=== PATIENT | female | born 1990 | race Caucasian/White ===

== ENCOUNTER 2017-03-23 09:29 | Inpatient (IN) | payer MEDICAID ==
[2017-03-31] MEDS ORDERED: RINGERS SOLUTION,LACTATED 1,000 ML IV PRN (19:48)
[2017-03-31] MEDS ORDERED: DINOPROSTONE 10 MG VAGINAL INSERT.SR PV PRN (19:48)
[2017-03-31] MEDS ORDERED: OXYTOCIN/NORMAL SALINE 20 UNIT/1,000 ML RTUINJ IV PRN (19:48)
[2017-03-31] MEDS ORDERED: RINGERS SOLUTION,LACTATED 300 ML IV ONE (19:48)
[2017-03-31] MEDS ORDERED: DINOPROSTONE 10 MG VAGINAL INSERT.SR ONE (20:16)
[2017-03-31 20:38] LABS: ABSOLUTE EOSINOPHILS # (AUTO) 0.1 10^3/uL (0.0-0.6); ABSOLUTE LYMPHOCYTES (AUTO) 1.5 10^3/uL (0.5-4.7); ABSOLUTE MONOCYTES (AUTO) 0.4 10^3/uL (0.1-1.4); ABSOLUTE NEUT (AUTO) 4.4 10^3/uL (1.7-8.2); BASOPHILS % (AUTO) 0.3 % (0-2); EOSINOPHILS % (AUTO) 0.8 % (0-6); HEMATOCRIT 33.4 % (36.0-47.0); HEMOGLOBIN 11.6 g/dL (12.0-15.5); HGB HCT DIFFERENCE 1.4; LYMPHOCYTES % (AUTO) 23.4 % (13-45); MEAN CORPUSCULAR HEMOGLOBIN 30.8 pg (27.0-33.4); MEAN CORPUSCULAR HGB CONC 34.8 g/dL (32.0-36.0); MEAN CORPUSCULAR VOLUME 89 fl (80-97); MONOCYTES % (AUTO) 6.5 % (3-13); RED BLOOD COUNT 3.77 10^6/uL (3.72-5.28); RED CELL DISTRIBUTION WIDTH 14.8 % (11.5-14.0); WHITE BLOOD COUNT 6.3 10^3/uL (4.0-10.5)
[2017-03-31 21:03] LABS: APPEARANCE,URINE SLIGHTLY-CLOUDY; BILIRUBIN,URINE NEGATIVE (NEGATIVE); GLUCOSE, URINE NEGATIVE (NEGATIVE); KETONES,URINE NEGATIVE (NEGATIVE); LEUKOCYTE ESTERASE,URINE NEGATIVE (NEGATIVE); NITRITE,URINE NEGATIVE (NEGATIVE); PROTEIN,URINE NEGATIVE (NEGATIVE); URINE SPECIFIC GRAVITY 1.003; UROBILINOGEN,URINE NEGATIVE mg/dL (<2.0)
[2017-03-31 21:18] LABS: URINE BARBITURATES SCREEN NEGATIVE; URINE METHADONE SCREEN NEGATIVE; URINE OPIATES LOW NEGATIVE; URINE PHENCYCLIDINE SCREEN NEGATIVE
[2017-04-01] MEDS ORDERED: PENICILLIN G POTASSIUM 5,000,000 UNIT in DEXTROSE 5%-WATER 100 ML IV ONE (08:00)
--- NOTE | 2017-04-01 09:51 | L&D Progress Notes ---
PROGRESS NOTES Datetime Report Generated by CPN: 04/01/2017 09:51 PROGRESS NOTE Impression: Reassuring Heart Rate Plan: Continue Present Management; Induction; Cervical Ripening Informed Consent Obtained: Vaginal Delivery Vital Signs : Reviewed; Within Normal Limits Comment: Cat 1 strip, no c/o irreg uc's, cervidil out, + change VAGINAL EXAM Dilatation: 1 Effacement: 0 Station: -3 MEMBRANES Membranes: Intact FETUS A FHR - Baseline: 125 Decelerations: None : 41.0 Presentation: Vertex SIGNATURE SIGNATURE: [id number] Assignment: Shena Altamirano MD Signature: with User ID: [email or web address] : with User ID: [email or web address]
[2017-04-01] MEDS ORDERED: PENICILLIN G-K 5 MILLION UNIT VIAL ONE (09:59)
[2017-04-01] MEDS ORDERED: PENICILLIN G POTASSIUM 2,500,000 UNIT in DEXTROSE 5%-WATER 100 ML IV SCH (10:00)
--- NOTE | 2017-04-01 11:17 | L&D Progress Notes ---
PROGRESS NOTES Datetime Report Generated by CPN: 04/01/2017 11:16 PROGRESS NOTE Procedures: Sterile Vag Exam Plan: Continue Present Management Vital Signs : Reviewed; Within Normal Limits Comment: asking for epidural, irreg uc's, no Pitocin, VE /vtx/0 FETUS C SIGNATURE: [id number] Assignment: Shena Altamirano MD Signature: with User ID: [email or web address] : with User ID: [email or web address]
[2017-04-01] MEDS ORDERED: FENTANYL/BUPIVACAINE/NS/PF 200 MCG/100 ML RTUINJ EPI ONE (11:26)
[2017-04-01] MEDS ORDERED: MISOPROSTOL 0.2 MG TABLET ONE (11:26)
[2017-04-01] MEDS ORDERED: LIDOCAINE 1% INJ-PF (10 MG/ML) 30 ML SDV ONE (11:26)
[2017-04-01] MEDS ORDERED: EPHEDRINE SULFATE INJ 50 MG/1 ML AMPULE ONE (11:26)
[2017-04-01] MEDS ORDERED: OXYTOCIN/NORMAL SALINE 20 UNIT/1,000 ML RTUINJ ONE (11:26)
[2017-04-01] MEDS ORDERED: BUPIVACAINE HCL 0.25 % INJ/PF (2.5 MG/1 ML) 30 ML VIAL ONE (11:27)
[2017-04-01] MEDS ORDERED: PENICILLIN G POTASSIUM 2,500,000 UNIT in DEXTROSE 5%-WATER 50 ML IV SCH (12:00)
[2017-04-01] MEDS ORDERED: OXYTOCIN/NORMAL SALINE 20 UNIT/1,000 ML RTUINJ IV PRN (13:22)
[2017-04-01] MEDS ORDERED: DIBUCAINE 1% OINTMENT 28 GM TP PRN (13:22)
[2017-04-01] MEDS ORDERED: ACETAMINOPHEN 650 MG SUPP.RECT PR PRN (13:22)
[2017-04-01] MEDS ORDERED: PSEUDOEPHEDRINE HCL 30 MG TABLET PO PRN (13:22)
[2017-04-01] MEDS ORDERED: MISOPROSTOL 0.2 MG TABLET PR PRN (13:22)
[2017-04-01] MEDS ORDERED: PROMETHAZINE HCL INJ 25 MG/1 ML VIAL IV PRN (13:22)
[2017-04-01] MEDS ORDERED: NA PHOS,M-B/NA PHOS,DI-BA (ADULT) 133 ML ENEMA PR PRN (13:22)
[2017-04-01] MEDS ORDERED: GLYCERIN/WITCH HAZEL LEAF 1 EACH MED..PAD TP PRN (13:22)
[2017-04-01] MEDS ORDERED: BENZOCAINE/MENTHOL AEROSOL SPRAY 56 ML TOP PRN (13:22)
[2017-04-01] MEDS ORDERED: DIPHENHYDRAMINE HCL 25 MG CAPSULE PO PRN (13:22)
[2017-04-01] MEDS ORDERED: ACETAMINOPHEN WITH CODEINE #3 TABLET PO PRN ×2 (13:22)
[2017-04-01] MEDS ORDERED: MEASLES,MUMPS&RUBELLA VACC/PF 0.5 ML VIAL SUBCUT PRN (13:22)
[2017-04-01] MEDS ORDERED: PROMETHAZINE HCL 25 MG TABLET PO PRN (13:22)
[2017-04-01] MEDS ORDERED: PROMETHAZINE HCL 25 MG SUPP.RECT PR PRN (13:22)
[2017-04-01] MEDS ORDERED: MAGNESIUM HYDROXIDE SUSP 30 ML UDCUP PO PRN (13:22)
[2017-04-01] MEDS ORDERED: DIPH/PERTUSS(ACELL)/TETANUS VAC/PF 0.5 ML SYR (>=10YO) IM PRN (13:22)
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
--- NOTE | 2017-04-01 16:13 | Delivery Summary ---
Del Sum A-C Datetime Report Generated by CPN: 04/01/2017 16:12 DELIVERY PERSONNEL DELIVERY PERSONNEL: [id number] Nurse [id number] Tank Driver Certified:: Gayle Brumfield CNM Labor and Delivery Nurse:: Essie Carreon RN Nursery Nurse:: Crystal Lambert RN Higher Education Administrator/VENEER DEPARTMENT MANAGER: Natali Waters, ST Higher Education Administrator/VENEER DEPARTMENT MANAGER: Marylin Al CNA II MATERNAL INFORMATION Delivery Anesthesia: Epidural Medications After Delivery: Pitocin Drip 20 Units/1000ml NSS; Other-Please Comment Meds After Delivery Comment: 1000 mcg cytotec OR Estimated Blood Loss (ml): 400 Maternal Complications: None Provider Comments: AROM thick meconium, baby made rapid descent, viable male from OA to STAR over intact perineum, thick meconium. placed on mothers abd, no dystocia. Spont delivery of gross large placenta, 3 VC, EBL = 400cc, cord clamped and cut after 2 minutes Cytotec 1000mcg in rectum. FFFM, mom and baby remain in recovery in stable condition LABOR SUMMARY EDC: 03/22/2017 00:00 No. Babies in Womb: 1 Attempted: No Labor Anesthesia: Epidural LABOR INFORMATION Reason for Induction: Post Dates Onset of Labor: 04/01/2017 09:16 Complete Dilatation: 04/01/2017 12:48 Cervical Ripening Agents: Cervidil Oxytocin: N/A Group B Beta Strep: positive Antibiotics # of Doses: 1 Antibiotics Time of Last Dose: 1010 Name of Antibiotic Given: Penicillin Steroids Given: None Reason Steroids Not Administered: Not Applicable MEMBRANES Membranes Rupture Method: Artificial Rupture of Membranes: 04/01/2017 12:48 Length of Rupture (hr): 0.20 Amniotic Fluid Color: Light Meconium Amniotic Fluid Amount: Scant Amniotic Fluid Odor: Normal STAGES OF LABOR Stage 1 hr: 3 Stage 1 min: 32 Stage 2 hr: 0 Stage 2 min: 12 Stage 3 hr: 0 Stage 3 min: 7 Total Time in Labor hr: 3 Total Time in Labor min: 51 VAGINAL DELIVERY Episiotomy: None Laceration #1: None Laceration Extension #1: N/A Laceration #2: None Laceration #3: None Laceration Repair: Not Applicable Sponge Count Correct: N/A Sharps Count Correct: N/A CSECTION DELIVERY Primary Indication: N/A BABY A INFORMATION Delivery Date/Time: 04/01/2017 13:00 Method of Delivery: Vaginal Born in Route : No : N/A Forceps: N/A Vacuum Extraction: N/A Shoulder Dystocia : No PRESENTATION/POSITION BABY A Presentation: Cephalic Cephalic Presentation: Vertex Vertex Position: Left Occipital Anterior Breech Presentation: N/A PLACENTA INFORMATION BABY A Placenta Delivery Time : 04/01/2017 13:07 Placenta Method of Delivery: Spontaneous Placenta Status: Delivered SCORES BABY A Heart Rate 1 min: >100 bpm Resp Effort 1 min: Good Cry Reflex Irritability 1 min: Cough or Sneeze or Pulls Away Muscle Tone 1 min: Active Motion Color 1 min: Body [place], Extremities Blue Resuscitation Effort 1 min: Tactile Stimulation SCORE 1 MIN: 9 Heart Rate 5 min: >100 bpm Resp Effort 5 min: Good Cry Reflex Irritability 5 min: Cough or Sneeze or Pulls Away Muscle Tone 5 min: Active Motion Color 5 min: Body [place], Extremities Blue Resuscitation Effort 5 min: N/A SCORE 5 MIN: 9 INFANT INFORMATION BABY A Gestational Age at Delivery: 41.3 Gestational Status: Late Term- 41- 41.6 Weeks Infant Outcome : Liveborn Infant Condition : Stable Infant Sex: Male IDENTIFICATION BABY A Infant Verification Date/Time: 04/01/2017 13:27 ID Band Number: [id number] Mother's Name Verified: Yes RN Verifying : C. leonardo, RN/M. Emerald, RN WEIGHT/LENGTH BABY A Infant Birthweight (gm): 4073 Infant Weight (lb): 9 Infant Weight (oz): 0 Infant Length (in): 22.00 Infant Length (cm): 55.88 CORD INFORMATION BABY A No. Cord Vessels: 3 Nuchal Cord : N/A Cord Blood Taken: Yes-For Storage (Mom's Blood type +) Infant Suction: None ASSESSMENT BABY A Infant Complications: None Physical Findings at Delivery: Within Normal Limits Infant Respirations: Appears Normal Skin to Skin: Yes Skin to Skin Time (min): 60 Proposal Manager/ALS Called : No Care By: Luis Lambert CNM Transferred To: Remains with Mother
[2017-04-01] MEDS: FERROUS SULFATE 325 MG TABLET PO SCH (18:16)
[2017-04-01] MEDS: DOCUSATE SODIUM 100 MG CAPSULE PO SCH (18:16)
[2017-04-01] MEDS: IBUPROFEN 800 MG TABLET PO SCH ×2 (18:20→21:49)
[2017-04-01] MEDS: FAMOTIDINE 20 MG TABLET PO SCH (22:07)
[2017-04-02] MEDS: IBUPROFEN 800 MG TABLET PO SCH ×3 (05:25→21:12)
--- NOTE | 2017-04-02 08:50 | PDOC PROGRESS REPORT ---
Subjective-OB Subjective: Post Delivery Day: 1 26 year old. Denies any needs at this time, states pain well controlled, lochia is stable, voiding without difficulty. Physical Exam (OB) Vital Signs: Temp Pulse Resp BP Pulse Ox 98.6 F 74 16 117/68 99 04/01/17 19:48 04/01/17 19:48 04/01/17 19:48 04/01/17 19:48 04/01/17 19:48 Intake & Output 04/01/17 04/02/17 04/03/17 06:59 06:59 06:59 Weight 88.5 kg - Lochia Lochia Amount: Small 10-25 ml Lochia Color: Rubra/Red - Abdomen Description: Soft, Round Fundal Description: Firm Fundal Height: u/u - u/2 Objective-Diagnostic Laboratory: 04/02/17 07:16 04/02/17 07:16 WBC Cancelled RBC Cancelled Hgb Cancelled Hct Cancelled MCV Cancelled MCH Cancelled MCHC Cancelled RDW Cancelled Plt Count Cancelled Assessment and Plan(PN) - Assessment and Plan (1) Delivery normal Is this a current diagnosis for this admission?: Yes Plan: routine care. - Time Spent with Patient Time with patient: Less than 15 minutes Critical Time spent with patient: Less than 15 minutes Medications reviewed and adjusted accordingly: Yes - Disposition Anticipated Discharge: Home Within: within 24 hours
[2017-04-02 09:29] LABS: HEMATOCRIT 31.7 % (36.0-47.0); HGB HCT DIFFERENCE 1.3; MEAN CORPUSCULAR HGB CONC 34.8 g/dL (32.0-36.0); MEAN CORPUSCULAR VOLUME 89 fl (80-97); RED BLOOD COUNT 3.55 10^6/uL (3.72-5.28); RED CELL DISTRIBUTION WIDTH 14.8 % (11.5-14.0); WHITE BLOOD COUNT 8.8 10^3/uL (4.0-10.5)
[2017-04-02] MEDS: FAMOTIDINE 20 MG TABLET PO SCH ×2 (09:32→22:41)
[2017-04-02] MEDS: FERROUS SULFATE 325 MG TABLET PO SCH ×2 (09:33→18:17)
[2017-04-02] MEDS: SENNOSIDES/DOCUSATE 8.6-50 MG 1 EACH TABLET PO SCH (09:33)
[2017-04-02] MEDS: PRENATAL VITAMIN W-O CA NO5/FE FUMARATE/FA CAPSULE PO SCH (09:35)
[2017-04-02] MEDS: DOCUSATE SODIUM 100 MG CAPSULE PO SCH ×2 (11:42→18:17)
[2017-04-03] MEDS: IBUPROFEN 800 MG TABLET PO SCH (06:44)
[2017-04-03 08:57] VITALS: BP 102/56
[2017-04-03] MEDS: SENNOSIDES/DOCUSATE 8.6-50 MG 1 EACH TABLET PO SCH (09:36)
[2017-04-03] MEDS: PRENATAL VITAMIN W-O CA NO5/FE FUMARATE/FA CAPSULE PO SCH (09:36)
[2017-04-03] MEDS: FERROUS SULFATE 325 MG TABLET PO SCH (09:36)
[2017-04-03] MEDS: FAMOTIDINE 20 MG TABLET PO SCH (09:36)
[2017-04-03] MEDS: DOCUSATE SODIUM 100 MG CAPSULE PO SCH (09:37)
--- NOTE | 2017-04-03 09:45 | PDOC PROGRESS REPORT ---
Subjective-OB Subjective: Post Delivery Day: 26 year old. Denies any needs at this time Doing well, no c/o, ready to go home, , voiding, ambulating Physical Exam (OB) Vital Signs: Temp Pulse Resp BP Pulse Ox 98.3 F 53 L 16 102/56 L 97 04/03/17 07:07 04/03/17 07:07 04/03/17 07:07 04/03/17 07:07 04/03/17 07:07 - PIH/Pre-Eclampsia Clonus: Negative Headache: Absent Epigastric Pain: No Visual Changes: No - Lochia Lochia Amount: Scant < 10 ml Lochia Color: Rubra/Red - Abdomen Description: Soft, Round Hernia Present: No Fundal Description: Firm Fundal Height: u/u - u/2 Objective-Diagnostic Laboratory: 04/02/17 09:15 Assessment and Plan(PN) - Assessment and Plan (1) Genital HSV Qualifiers: Herpes simplex infection site: unspecified Qualified Code(s): A60.00 - Herpesviral infection of urogenital system, unspecified Is this a current diagnosis for this admission?: No (2) Hypothyroid Qualifiers: Hypothyroidism type: unspecified Qualified Code(s): E03.9 - Hypothyroidism , unspecified Is this a current diagnosis for this admission?: Yes (3) Depression Qualifiers: Depression Type: unspecified Qualified Code(s): F32.9 - Major depressive disorder, single episode, unspecified Is this a current diagnosis for this admission?: Yes (4) Asthma Qualifiers: Asthma severity: mild Asthma complication type: uncomplicated Is this a current diagnosis for this admission?: Yes (5) Delivery normal Is this a current diagnosis for this admission?: Yes - Time Spent with Patient Time with patient: Less than 15 minutes Medications reviewed and adjusted accordingly: Yes - Disposition Anticipated Discharge: Home Within: Other - home today, RTC 4 weeks
--- NOTE | 2017-04-03 09:49 | PDOC DISCHARGE SUMMARY ---
Final Diagnosis Discharge Date: 04/03/17 - Final Diagnosis (1) Genital HSV Is this a current diagnosis for this admission?: Yes (2) Hypothyroid Is this a current diagnosis for this admission?: Yes (3) Depression Is this a current diagnosis for this admission?: Yes (4) Asthma Is this a current diagnosis for this admission?: Yes (5) Delivery normal Is this a current diagnosis for this admission?: Yes Discharge Data - Discharge Medication Home Medications: Levothyroxine Sodium 1 tab PO DAILY 08/09/15 Prenat 115/Iron Fum/Folic/Dss [ 19 Tablet] 1 tab PO DAILY 08/09/15 Gestational Age: 41.3 Reason(s) for Admission: Induction of Labor, Group B Strep Positive Procedures: NST, Ultrasound Intrapartum Procedure(s): Spontaneous Vaginal Delivery - Data Baby 1 Male at 1 minute: 9 at 5 minutes: 9 Weight: 4.082 kg Home with Mother: Yes Complications: No - Diagnosis Test Laboratory: Temp Pulse Resp BP Pulse Ox 98.3 F 53 L 16 102/56 L 97 04/03/17 07:07 04/03/17 07:07 04/03/17 07:07 04/03/17 07:07 04/03/17 07:07 03/31/17 03/31/17 04/02/17 19:50 20:18 07:16 RBC 3.77 Cancelled Hgb 11.6 L Cancelled Hct 33.4 L Cancelled Urine Opiates Screen NEGATIVE 04/02/17 09:15 RBC 3.55 L Hgb 11.0 L Hct 31.7 L Urine Opiates Screen - Discharge information/Instructions Discharge Activity: Activity As Tolerated, No Lifting Over 10 Pounds, Pelvic Rest Discharge Diet: As Tolerated, Regular Disposition: HOME, SELF-CARE Follow up with: [facility] in: 4, Weeks
== END 2017-04-03 11:40 | disposition home or self-care (01) | DRG 775 ==
LOC: LR 03-31 19:37 → 2N 04-01 15:57
PROVIDERS: ADMIT Obstetrics & Gynecology; ATTEND Obstetrics & Gynecology
PROC: 10E0XZZ Delivery of Products of Conception, External Approach (ICD-10-PCS; principal; 2017-04-01)
DX: O48.0 Post-term pregnancy (principal); O99.284 Endocrine, nutritional and metabolic diseases complicating childbirth; E03.9 Hypothyroidism, unspecified; O77.0 Labor and delivery complicated by meconium in amniotic fluid; O99.824 Streptococcus B carrier state complicating childbirth; Z3A.41 41 weeks gestation of pregnancy; Z37.0 Single live birth; O99.344 Other mental disorders complicating childbirth; F32.9 Major depressive disorder, single episode, unspecified; O75.89 Other specified complications of labor and delivery; J45.909 Unspecified asthma, uncomplicated; Z87.891 Personal history of nicotine dependence; Z87.42 Personal history of other diseases of the female genital tract
CPT/HCPCS: 36415; 80307; 81005; 85025; 85027; 86592; 86850; 86900; 86901; J2540; J2590; J3490

== ENCOUNTER 2019-11-04 13:02 | Outpatient (CLI) | payer MEDICAID | END 2019-11-04 13:46 | disposition home or self-care (01) | LOC: LC 13:02 | PROVIDERS: ATTEND Obstetrics & Gynecology | DX: O36.8130 Decreased fetal movements, third trimester, not applicable or unspecified (principal); Z3A.38 38 weeks gestation of pregnancy | CPT/HCPCS: 59025 ==

== ENCOUNTER 2019-11-11 18:10 | Inpatient (IN) | payer MEDICAID ==
[2019-11-11] MEDS ORDERED: RINGERS SOLUTION,LACTATED 1,000 ML IV PRN (18:28)
[2019-11-11] MEDS ORDERED: RINGERS SOLUTION,LACTATED 1,000 ML IV ONE (18:28)
[2019-11-11] MEDS ORDERED: OXYTOCIN 10 UNIT/ML VIAL ONE (18:31)
[2019-11-11] MEDS ORDERED: MISOPROSTOL 0.2 MG TABLET ONE (18:31)
[2019-11-11] MEDS ORDERED: LIDOCAINE 1% INJ-PF (10 MG/ML) 30 ML SDV ONE (18:31)
[2019-11-11] MEDS ORDERED: OXYTOCIN/0.9 % SODIUM CHLORIDE 30 UNIT/500 ML RTUINJ ONE (18:31)
[2019-11-11 18:55] LABS: APPEARANCE,URINE CLEAR; BILIRUBIN,URINE NEGATIVE (NEGATIVE); COLOR,URINE STRAW; GLUCOSE, URINE NEGATIVE (NEGATIVE); KETONES,URINE TRACE mg/dL (NEGATIVE); LEUKOCYTE ESTERASE,URINE NEGATIVE (NEGATIVE); NITRITE,URINE NEGATIVE (NEGATIVE); PROTEIN,URINE NEGATIVE (NEGATIVE); URINE SPECIFIC GRAVITY 1.003; UROBILINOGEN,URINE NEGATIVE mg/dL (<2.0)
[2019-11-11 19:07] LABS: ABSOLUTE BASOPHILS # (AUTO) 0.1 10^3/uL (0.0-0.2); ABSOLUTE EOSINOPHILS # (AUTO) 0.1 10^3/uL (0.0-0.6); ABSOLUTE LYMPHOCYTES (AUTO) 1.3 10^3/uL (0.5-4.7); ABSOLUTE MONOCYTES (AUTO) 0.5 10^3/uL (0.1-1.4); BASOPHILS % (AUTO) 0.9 % (0-2); EOSINOPHILS % (AUTO) 0.7 % (0-6); HEMATOCRIT 35.8 % (36.0-47.0); HEMOGLOBIN 12.9 g/dL (12.0-15.5); MEAN CORPUSCULAR HEMOGLOBIN 33.1 pg (27.0-33.4); MEAN CORPUSCULAR VOLUME 92 fl (80-97); MONOCYTES % (AUTO) 5.8 % (3-13); PLATELET COUNT 148 10^3/uL (150-450); RED BLOOD COUNT 3.89 10^6/uL (3.72-5.28); RED CELL DISTRIBUTION WIDTH 14.9 % (11.5-14.0); SEGMENTED NEUTROPHILS % (AUTO) 75.6 % (42-78); TOTAL CELLS COUNTED % (AUTO) 100 %; WHITE BLOOD COUNT 7.9 10^3/uL (4.0-10.5)
--- NOTE | 2019-11-11 19:20 | Admission Physical ---
Datetime Report Generated by CPN: 11/11/2019 19:20 CURRENT ADMISSION Chief Complaint: Uterine Contractions Indication for Induction: Not Applicable Admit Impression : Term, Intrauterine ; Active Labor; Intact Membranes Admit Plan: Admit to Unit; Initiate Labor Protocol ALLERGIES Medication Allergies: No Medication Allergies: No Known Allergies (11/04/2019) Latex: No Latex Allergies Food Allergies: none Environmental Allergies: none OBSTETRICAL HISTORY EDC: 11/12/2019 00:00 : 3 Para: 2 Cesareans: o Gestational Diabetes: No Rh Sensitization: No Incompetent Cervix: No LITTLE: No Infertility: No ART Treatment: No Uterine Anomaly: No IUGR: No Hx Previous C/S: No Macrosomia: No Hx Loss/Stillborn: No PIH: No Hx : No Placenta Previa/Abruption: No Depression/PP Depression: No PTL/PROM: No Post Hemorrhage: No Current Procedures: Ultrasound; NST Obstetrical History Comments: G1-08/10/2015, 41 weeks, vaginal, shoulder dystocia G2-04/01/2017, 41 weeks, vaginal G3- Current SEE RECORDS Alcohol: No Marijuana : No Cocaine: No Other Illicit Drugs: No Cigarettes: Never Smoker. [id number] MEDICAL HISTORY Diabetes: No Blood Transfusion: No Pulmonary Disease (Asthma, TB): Yes Breast Disease: No Hypertension: No Sisal Picker Surgery: No Heart Disease: No Hosp/Surgery: Yes Autoimmune Disorder: No Anesthetic Complications: No Kidney Disease: No Abnormal Pap Smear: No Neuro/Epilepsy: No Psychiatric Disorders: No Other Medical Diseases: No Hepatitis/Liver Disease: No Significant Family History: No Varicosities/Phlebitis: No Trauma/Violence : No Thyroid Dysfunction: Yes Medical History Comments: Hypothyroid, asthma, hospitalized with childbirth INFECTIOUS HISTORY Gonorrhea: No Genital Herpes: No Chlamydia: No Tuberculosis: No Syphilis: No Hepatitis: No HIV/AIDS Exposure: No Rash or Viral Illness: No HPV: No Infectious History Comments: Hx of cold sores, never a genital outbreak, been taking valtrex as a preventative PHYSICAL EXAM General: Normal HEENT: Normal Neurologic: Normal Thyroid: Deferred Heart: Normal Lungs: Normal Breast: Deferred Back: Normal Abdomen: Normal Genitourinary Exam: Normal Extremities: Normal DTRs: Normal Pelvic Type: Adequate Physical Exam Comments: no e/o lesions on exam. NO prodrome Vital Signs: Reviewed VAGINAL EXAM Dilatation: 8 Effacement: 100 Station: 0 Contraction Comments: q 2 -3 MEMBRANES Membranes: Intact FETUS A EGA: 39.6 Monitoring: External US FHR- Baseline: 145 Variability: Moderate 6-25bpm Accelerations: 15X15 Decelerations: None FHR Category: Category I Presentation: Vertex Admit Comment: 28yo at 39+6ega presents for active labor and regular uterine contractions. G1 was 10#5oz and shoulder dystocia. Patient has a h/o synthroid. 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 Exam with no lesions. H/o macrosomia but no h/o GDM. H/o asthma. 8cm. Admit and precip delivery occured. PLANS FOR LABOR AND DELIVERY Labor and Delivery: None Pain Management: None Feeding Preference: Breast Circumcision: N/A INFORMED CONSENT Informed Consent Obtained: Vaginal Delivery; Risks, Benefits and Alternatives Discussed Signature: with User ID: [email or web address]
[2019-11-11 20:31] LABS: URINE AMPHETAMINES SCREEN NEGATIVE; URINE BARBITURATES SCREEN NEGATIVE; URINE BENZODIAZEPINES SCREEN NEGATIVE; URINE COCAINE SCREEN NEGATIVE; URINE MARIJUANA (THC) SCREEN NEGATIVE; URINE METHADONE SCREEN NEGATIVE; URINE PHENCYCLIDINE SCREEN NEGATIVE
[2019-11-11] MEDS ORDERED: DIBUCAINE 1% OINTMENT 28 GM TP PRN (20:35)
[2019-11-11] MEDS ORDERED: MAGNESIUM HYDROXIDE SUSP 30 ML UDCUP PO PRN (20:35)
[2019-11-11] MEDS ORDERED: GLYCERIN/WITCH HAZEL LEAF 1 EACH MED..WIPE TP PRN (20:35)
[2019-11-11] MEDS ORDERED: PROMETHAZINE HCL 25 MG TABLET PO PRN (20:35)
[2019-11-11] MEDS ORDERED: BENZOCAINE/MENTHOL AEROSOL SPRAY 56 ML TOP PRN (20:35)
[2019-11-11] MEDS ORDERED: ZOLPIDEM TARTRATE 5 MG TABLET PO PRN (20:35)
[2019-11-11] MEDS ORDERED: NA PHOS,M-B/NA PHOS,DI-BA (ADULT) 133 ML ENEMA PR PRN (20:35)
[2019-11-11] MEDS ORDERED: DIPH/PERTUSS(ACELL)/TETANUS VAC/PF 0.5 ML SYR (>=10YO) IM PRN (20:35)
[2019-11-11] MEDS ORDERED: ACETAMINOPHEN WITH CODEINE #3 TABLET PO PRN ×2 (20:35)
[2019-11-11] MEDS ORDERED: PROMETHAZINE HCL INJ 25 MG/1 ML VIAL IV PRN (20:35)
[2019-11-11] MEDS ORDERED: MEASLES,MUMPS&RUBELLA VACC/PF 0.5 ML VIAL SUBCUT PRN (20:35)
[2019-11-11] MEDS ORDERED: PROMETHAZINE HCL 25 MG SUPP.RECT PR PRN (20:35)
[2019-11-11] MEDS ORDERED: PSEUDOEPHEDRINE HCL 30 MG TABLET PO PRN (20:35)
[2019-11-11] MEDS ORDERED: MISOPROSTOL 0.2 MG TABLET PR PRN (20:35)
[2019-11-11] MEDS ORDERED: OXYTOCIN/0.9 % SODIUM CHLORIDE 30 UNIT/500 ML RTUINJ IV PRN (20:35)
[2019-11-11] MEDS ORDERED: ACETAMINOPHEN 325 MG TABLET PO PRN (20:35)
[2019-11-11] MEDS ORDERED: DIPHENHYDRAMINE HCL 25 MG CAPSULE PO PRN (20:35)
[2019-11-12] MEDS: IBUPROFEN 800 MG TABLET PO SCH ×4 (02:03→21:12)
[2019-11-12] MEDS: FAMOTIDINE 20 MG TABLET PO SCH ×3 (02:03→21:12)
[2019-11-12 07:09] LABS: HEMATOCRIT 33.6 % (36.0-47.0); HEMOGLOBIN 11.9 g/dL (12.0-15.5); MEAN CORPUSCULAR HEMOGLOBIN 33.1 pg (27.0-33.4); MEAN CORPUSCULAR HGB CONC 35.6 g/dL (32.0-36.0); MEAN CORPUSCULAR VOLUME 93 fl (80-97); PLATELET COUNT 144 10^3/uL (150-450); RED BLOOD COUNT 3.62 10^6/uL (3.72-5.28)
[2019-11-12] MEDS ORDERED: PROMETHAZINE HCL INJ 25 MG/1 ML VIAL IV PRN (10:00)
[2019-11-12] MEDS ORDERED: DIPH/PERTUSS(ACELL)/TETANUS VAC/PF 0.5 ML SYR (>=10YO) IM PRN (10:00)
[2019-11-12] MEDS ORDERED: MEASLES,MUMPS&RUBELLA VACC/PF 0.5 ML VIAL SUBCUT PRN (10:00)
[2019-11-12] MEDS: DOCUSATE SODIUM 100 MG CAPSULE PO SCH ×2 (10:17→17:23)
[2019-11-12] MEDS: PRENATAL VITAMIN W DHA CAPSULE PO SCH (10:17)
[2019-11-12] MEDS: SENNOSIDES/DOCUSATE 8.6-50 MG 1 EACH TABLET PO SCH (10:17)
[2019-11-12] MEDS: FERROUS SULFATE 325 MG TABLET PO SCH ×2 (10:17→17:23)
--- NOTE | 2019-11-12 12:40 | PDOC PROGRESS REPORT ---
Subjective-OB Progress Note for:: 11/12/19 Subjective: reports bleeding slowing, pain controlled with current meds. denies needs. Physical Exam (OB) Vital Signs: Temp Pulse Resp BP Pulse Ox 97.4 F 59 L 17 104/62 98 11/12/19 07:46 11/12/19 07:46 11/12/19 07:46 11/12/19 07:46 11/12/19 07:46 Intake & Output 11/11/19 11/12/19 11/13/19 06:59 06:59 06:59 Intake Total 500 Balance 500 Weight 77.564 kg - Abdomen Description: Soft Hernia Present: No Fundal Description: Firm, Midline Fundal Height: u/u - u/2 - Abdominal Distension: No distension Tenderness: Nontender - Extremities Lower extremities: Gloria's sign Calf: Normal, Nontender Objective-Diagnostic Laboratory: 11/12/19 06:49 11/11/19 11/11/19 11/11/19 18:18 18:41 18:41 WBC 7.9 RBC 3.89 Hgb 12.9 Hct 35.8 L MCV 92 MCH 33.1 MCHC 36.0 RDW 14.9 H Plt Count 148 L Seg Neutrophils % 75.6 Urine Color STRAW Urine Appearance CLEAR Urine pH 7.0 Ur Specific [place] 1.003 Urine Protein NEGATIVE Urine Glucose (UA) NEGATIVE Urine Ketones TRACE H Urine Blood NEGATIVE Urine Nitrite NEGATIVE Ur Leukocyte Esterase NEGATIVE Blood Type A POSITIVE Antibody Screen NEGATIVE 11/12/19 06:49 WBC 9.0 RBC 3.62 L Hgb 11.9 L Hct 33.6 L MCV 93 MCH 33.1 MCHC 35.6 RDW 15.0 H Plt Count 144 L Seg Neutrophils % Urine Color Urine Appearance Urine pH Ur Specific [place] Urine Protein Urine Glucose (UA) Urine Ketones Urine Blood Urine Nitrite Ur Leukocyte Esterase Blood Type Antibody Screen Assessment and Plan(PN) - Time Spent with Patient Time with patient: Less than 15 minutes - Disposition Anticipated Discharge: Home Within: within 24 hours
[2019-11-12] MEDS: LEVOTHYROXINE SODIUM 0.1 MG TABLET PO SCH (14:29)
--- NOTE | 2019-11-12 18:41 | Delivery Summary ---
Del Sum A-C Datetime Report Generated by CPN: 11/12/2019 18:41 DELIVERY PERSONNEL DELIVERY PERSONNEL: [id number] Delivery Doctor:: Kalyn Macdonald MD Labor and Delivery Nurse:: Claudia Alvarez RNcore rescuer Nurse:: JEM Burk Nursery Nurse:: MATTHEW Billyub Tech/SVP [employer] PARTNERSHIPS: Belle Walters, NURSE OBGYN MATERNAL INFORMATION Delivery Anesthesia: None Medications After Delivery: Pitocin Bolus-Please Comment; Pitocin 30 Units in 500ml NS/D5W Estimated Blood Loss (ml): 100 Delivery QBL: 100 Delivery QBL Comment: Delivery QBL-100 Maternal Complications: Precipitous Labor (<3hrs) Provider Comments: VFI delivered in ANGIE presentation. No nuchal cord. SHoulders and body delivered without difficulty. Cord doubly clamped and cut and infant to maternal abd. Placenta delivered intact spontaneously. no perineal lacerations. Good hemostasis. FF at U. Mother and baby stable upon provider leaving the room. LABOR SUMMARY EDC: 11/12/2019 00:00 No. Babies in Womb: 1 Attempted: No Labor Anesthesia: None LABOR INFORMATION Reason for Induction: Not Applicable Onset of Labor: 11/11/2019 18:27 Complete Dilatation: 11/11/2019 18:40 Oxytocin: N/A Group B Beta Strep: Negative Antibiotics # of Doses: n/a Steroids Given: None Reason Steroids Not Administered: Not Applicable MEMBRANES Membranes Rupture Method: Spontaneous Membranes Rupture Method: Spontaneous Rupture of Membranes: 11/11/2019 18:40 Length of Rupture (hr): 0.10 Amniotic Fluid Color: Moderate Meconium Amniotic Fluid Color: Moderate Meconium Amniotic Fluid Amount: Moderate Amniotic Fluid Amount: None Amniotic Fluid Odor: Normal STAGES OF LABOR Stage 1 hr: 0 Stage 1 min: 13 Stage 2 hr: 0 Stage 2 min: 6 Stage 3 hr: 0 Stage 3 min: 5 Total Time in Labor hr: 0 Total Time in Labor min: 24 VAGINAL DELIVERY Episiotomy: None Laceration #1: None Laceration Extension #1: N/A Laceration Repair: Not Applicable Sponge Count Correct: Yes Sharps Count Correct: Yes CSECTION DELIVERY Primary Indication: N/A Secondary Indication: N/A CSection Incidence: N/A Labor: N/A Elective: N/A CSection Incision: N/A BABY A INFORMATION Delivery Date/Time: 11/11/2019 18:46 Method of Delivery: Vaginal Nurse Controlled Delivery: No Born in Route : No : N/A Forceps: N/A Shoulder Dystocia : No PRESENTATION/POSITION BABY A Presentation: Cephalic Cephalic Presentation: Vertex Vertex Position: Right Occipital Anterior Breech Presentation: N/A PLACENTA INFORMATION BABY A Placenta Delivery Time : 11/11/2019 18:51 Placenta Method of Delivery: Spontaneous Placenta Method of Delivery: Spontaneous Placenta Status: Delivered SCORES BABY A Heart Rate 1 min: >100 bpm Resp Effort 1 min: Good Cry Reflex Irritability 1 min: Cough or Sneeze or Pulls Away Muscle Tone 1 min: Active Motion Color 1 min: Body [place], Extremities Blue Resuscitation Effort 1 min: Tactile Stimulation SCORE 1 MIN: 9 Heart Rate 5 min: >100 bpm Resp Effort 5 min: Good Cry Reflex Irritability 5 min: Cough or Sneeze or Pulls Away Muscle Tone 5 min: Active Motion Color 5 min: Body [place], Extremities Blue Resuscitation Effort 5 min: N/A SCORE 5 MIN: 9 INFANT INFORMATION BABY A Gestational Age at Delivery: 39.6 Gestational Status: Full Term- 39- 40.6 Weeks Outcome : Liveborn Condition : Stable Infant Sex: Female Sex: Female IDENTIFICATION BABY A Verification Date/Time: 11/11/2019 18:59 ID Band Number: [id number] Mother's Name Verified: Yes RN Verifying : R Antonio RN Additional Verifying Personnel: C [facility] NURSE OBGYN WEIGHT/LENGTH BABY A Infant Birthweight (gm): 4455 Weight (lb): 9 Weight (oz): 13 Length (in): 21.50 Infant Length (cm): 54.61 CORD INFORMATION BABY A No. Cord Vessels: 3 Nuchal Cord : N/A Cord Blood Taken: Yes-For Storage (Mom's Blood type +) ASSESSMENT BABY A Complications: None Physical Findings at Delivery: Other Physical Findings- Other: see nursery note Respirations: Appears Normal Skin to Skin: Yes Skin to Skin: Yes Rural Route Mail Carrier/ALS Called : No Transferred To: Remains with Mother BABY B INFORMATION : N/A SIGNATURES Signature: with User ID: [email or web address]
--- NOTE | 2019-11-12 18:54 | SBAR Transfer Report ---
SBAR Report Datetime Report Generated by CPN: 11/12/2019 18:54 Maternal Information Age: 29 (08/27/2019 15:38:QS system process) Race: (08/27/2019 15:38:QS system process) : 3 (11/04/2019 13:05:Claudia Alvarez RN) Para: 2 (11/04/2019 13:05:Claudia Alvarez RN) EDC: 11/12/2019 00:00 (11/04/2019 13:05:Fifi Verma RN) EGA: 39.6 (11/04/2019 13:05:QS system process) Admission Date/Time: 11/11/2019 18:31 (11/11/2019 18:32:QS system process) Attending: CINDY JEFFREY (11/11/2019 18:10:QS system process) Reason for Admission: Onset of Labor (11/11/2019 18:55:Claudia Alvarez RN) Reason for Induction: Not Applicable (11/04/2019 13:05:Ml Wright RN) Latex Allergy: No Latex Allergies (11/04/2019 13:05:Fifi Verma RN) Medication Allergy: No Known Allergies (11/04/2019) (11/04/2019 13:10:QS system process) Environmental Allergy: none (11/04/2019 13:05:Fifi Verma RN) Maternal Labs Blood Type: A Positive (11/04/2019 13:05:Claudia Alvarez RN) Group Beta Strep: Negative (11/04/2019 13:05:Claudia Alvarez RN) RPR/VDRL: NONREACTIVE (11/11/2019 18:41:QS system process) Rubella: Immune (11/04/2019 13:05:Claudia Alvarez RN) HIV Status: Negative (11/04/2019 13:05:Claudia Alvarez RN) Gonorrhea: Negative (11/04/2019 13:05:Claudia Alvarez RN) Chlamydia: Negative (11/04/2019 13:05:Claudia Alvarez RN) Hepatitis B: Negative (11/04/2019 13:05:Claudia Alvarez RN)
--- NOTE | 2019-11-12 23:15 | SBAR Transfer Report ---
SBAR Report Datetime Report Generated by CPN: 11/12/2019 23:14 Maternal Information Age: 28 (08/27/2019 15:38:QS system process) Race: (08/27/2019 15:38:QS system process) : 3 (11/04/2019 13:05:Claudia Alvarez RN) Para: 2 (11/04/2019 13:05:Claudia Alvarez RN) EDC: 11/12/2019 00:00 (11/04/2019 13:05:Fifi Verma RN) EGA: 39.6 (11/04/2019 13:05:QS system process) Admission Date/Time: 11/11/2019 18:31 (11/11/2019 18:32:QS system process) Attending: CINDY JEFFREY (11/11/2019 18:10:QS system process) Reason for Admission: Onset of Labor (11/11/2019 18:55:Claudia Alvarez RN) Reason for Induction: Not Applicable (11/04/2019 13:05:Ml Wright RN) Latex Allergy: No Latex Allergies (11/04/2019 13:05:Fifi Verma RN) Medication Allergy: No Known Allergies (11/04/2019) (11/04/2019 13:10:QS system process) Environmental Allergy: none (11/04/2019 13:05:Fifi Verma RN) Maternal Labs Blood Type: A Positive (11/04/2019 13:05:Claudia Alvarez RN) Group Beta Strep: Negative (11/04/2019 13:05:Claudia Alvarez RN) RPR/VDRL: NONREACTIVE (11/11/2019 18:41:QS system process) Rubella: Immune (11/04/2019 13:05:Claudia Alvarez RN) HIV Status: Negative (11/04/2019 13:05:Claudia Alvarez RN) Gonorrhea: Negative (11/04/2019 13:05:Claudia Alvarez RN) Chlamydia: Negative (11/04/2019 13:05:Claudia Alvarez RN) Hepatitis B: Negative (11/04/2019 13:05:Claudia Alvarez RN) Medical/Surgical History Diabetes: No (11/04/2019 13:05:Claudia Alvarez RN) Hypertension: No (11/04/2019 13:05:Claudia Alvarez RN) Heart Disease: No (11/04/2019 13:05:Claudia Alvarez RN) Autoimmune Disorder: No (11/04/2019 13:05:Claudia Alvarez RN) Kidney Disease/ UTI: No (11/04/2019 13:05:Claudia Alvarez RN) Neurologic/Epilepsy: No (11/04/2019 13:05:Claudia Alvarez RN) Psychiatric Disorder: No (11/04/2019 13:05:Claudia Alvarez RN) Hepatitis/Liver Disease: No (11/04/2019 13:05:Claudia Alvarez RN) Varicosities/Phlebitis: No (11/04/2019 13:05:Claudia Alvarez RN) Thyroid Dysfunction: Yes (11/04/2019 13:05:Claudia Alvarez RN) Trauma/Violence: No (11/04/2019 13:05:Claudia Alvarez RN) Blood Transfusion: No (11/04/2019 13:05:Claudia Alvarez RN) D (Rh) Sensitization: No (11/04/2019 13:05:Claudia Alvarez RN) Pulmonary (TB, Asthma): Yes (11/04/2019 13:05:Claudia Alvarez RN) Breast: No (11/04/2019 13:05:Claudia Alvarez RN) Gynecological Surgery: No (11/04/2019 13:05:Claudia Alvarez RN) Hospitalization/Surgery: Yes (11/04/2019 13:05:Claudia Alvarez RN) Anesthetic Complication: No (11/04/2019 13:05:Claudia Alvarez RN) Abnormal Pap Smear: No (11/04/2019 13:05:Claudia Alvarez RN) Infertility: No (11/04/2019 13:05:Claudia Alvarez RN) ART Treatment: No (11/04/2019 13:05:Claudia Alvarez RN) Other Medical Diseases: No (11/04/2019 13:05:Claudia Alvarez RN) Significant Family History: No (11/04/2019 13:05:Claudia Alvarez RN) Hx Comments: Hypothyroid, asthma, hospitalized with childbirth (11/04/2019 13:05:Claudia Alvarez RN) Infectious History Chlamydia: No (11/04/2019 13:05:Claudia Alvarez RN) Genital Herpes: No (11/04/2019 13:05:Claudia Alvarez RN) Gonorrhea: No (11/04/2019 13:05:Claudia Alvarez RN) Hepatitis: No (11/04/2019 13:05:Claudia Alvarez RN) HIV/AIDS: No (11/04/2019 13:05:Claudia Alvarez RN) Human Papilloma Virus: No (11/04/2019 13:05:Claudia Alvarez RN) Syphilis: No (11/04/2019 13:05:Claudia Alvarez RN) Infectious History Comments: Hx of cold sores, never a genital outbreak, been taking valtrex as a preventative (11/04/2019 13:05:Claudia Alvarez RN) Genetic History Age >=35 at [place]: No (11/04/2019 13:05:Claudia Alvarez RN) Thalassemia: No (11/04/2019 13:05:Claudia Alvarez RN) Neural Tube Defect: No (11/04/2019 13:05:Claudia Alvarez RN) Congenital Heart Defect: No (11/04/2019 13:05:Claudia Alvarez RN) Down Syndrome: No (11/04/2019 13:05:Claudia Alvarez RN) Igor-Sachs: No (11/04/2019 13:05:Claudia Alvarez RN) Latanya: No (11/04/2019 13:05:Claudia Alvarez RN) Familial Dysautonomia: No (11/04/2019 13:05:Claudia Alvarez RN) Sickle Cell Disease/Trait: No (11/04/2019 13:05:Claudia Alvarez RN) Hemophilia/Bld Disorder: No (11/04/2019 13:05:Claudia Alvarez RN) Muscular Dystrophy: No (11/04/2019 13:05:Claudia Alvarez RN) Cystic Fibrosis: No (11/04/2019 13:05:Claudia Alvarez RN) [place]'s Chorea: No (11/04/2019 13:05:Claudia Alvarez RN) Mental Retardation/Autism: No (11/04/2019 13:05:Claudia Alvarez RN) Tested for Fragile X: No (11/04/2019 13:05:Claudia Alvarez RN) Other Inherited Disorder: No (11/04/2019 13:05:Claudia Alvarez RN) Maternal Metabolic: No (11/04/2019 13:05:Claudia Alvarez RN) FOB Defect: No (11/04/2019 13:05:Claudia Alvarez RN) Recurrent Loss/Stillborn: No (11/04/2019 13:05:Claudia Alvarez RN) Other Defects: No (11/04/2019 13:05:Claudia Alvarez RN) Drugs/Medications: No (11/04/2019 13:05:Claudia Alvarez RN) Delivery Information Delivery Date/Time: 11/11/2019 18:46 (11/04/2019 13:05:Claudia Alvarez RN) GA at Delivery: 39.6 (11/04/2019 13:05:Claudia Alvarez RN) Method of Delivery: Vaginal (11/04/2019 13:05:Claudia Alvarez RN) Complications Baby A: None (11/04/2019 13:05:Ml Wright RN) Delivery Anesthesia: None (11/04/2019 13:05:Claudia Alvarez RN) Reason for C/S: N/A (11/04/2019 13:05:Ml Wright RN) Episiotomy: None (11/04/2019 13:05:Claudia Alvarez RN) Laceration Type: None (11/04/2019 13:05:Claudia Alvarez RN) EBL: 100 (11/04/2019 13:05:Claudia Alvarez RN)
[2019-11-13] MEDS: LEVOTHYROXINE SODIUM 0.1 MG TABLET PO SCH (05:44)
[2019-11-13] MEDS: IBUPROFEN 800 MG TABLET PO SCH ×2 (05:44→14:14)
[2019-11-13 08:34] VITALS: BP 102/58
[2019-11-13] MEDS: PRENATAL VITAMIN W DHA CAPSULE PO SCH (10:15)
[2019-11-13] MEDS: DOCUSATE SODIUM 100 MG CAPSULE PO SCH (10:15)
[2019-11-13] MEDS: FERROUS SULFATE 325 MG TABLET PO SCH (10:15)
[2019-11-13] MEDS: FAMOTIDINE 20 MG TABLET PO SCH (10:15)
[2019-11-13] MEDS: SENNOSIDES/DOCUSATE 8.6-50 MG 1 EACH TABLET PO SCH (10:15)
--- NOTE | 2019-11-13 10:55 | PDOC DISCHARGE SUMMARY ---
Impression - Admit/DC Date/PCP Admission Date/Primary Care Provider: 11/11/19 18:31 Discharge Date: 11/13/19 - PP Day #2, A+ ,Rubella Immune, - Discharge Diagnosis (1) (normal spontaneous vaginal delivery) Is this a current diagnosis for this admission?: Yes (2) Precipitous delivery Is this a current diagnosis for this admission?: Yes (3) Asthma Is this a current diagnosis for this admission?: Yes (4) Depression Is this a current diagnosis for this admission?: Yes - Additional Information Resuscitation Status: Full Code Discharge Diet: As Tolerated, Regular Discharge Activity: Activity As Tolerated, Balance Activity w/Rest, Pelvic Rest, No tub bath Referrals: [facility] [Provider Group] (Follow up in 4 weeks for your post par alan evaluation. Call the office and make an appointment. ) Prescriptions: Ibuprofen [Motrin 800 mg Tablet] 800 mg PO Q8 #60 tablet Home Medications: Levothyroxine Sodium 100 mcg PO QAM 08/09/15 Prenat 115/Iron Fum/Folic/Dss [ 19 Tablet] 1 tab PO DAILY 08/09/15 Ibuprofen [Motrin 800 mg Tablet] 800 mg PO Q8 #60 tablet 11/13/19 HPI Reason(s) for Admission: Onset of Labor Intrapartum Procedure(s): Spontaneous Vaginal Delivery Results Laboratory Results: WBC 9.0 10^3/uL (4.0-10.5) 11/12/19 06:49 RBC 3.62 10^6/uL (3.72-5.28) L 11/12/19 06:49 Hgb 11.9 g/dL (12.0-15.5) L 11/12/19 06:49 Hct 33.6 % (36.0-47.0) L 11/12/19 06:49 MCV 93 fl (80-97) 11/12/19 06:49 MCH 33.1 pg (27.0-33.4) 11/12/19 06:49 MCHC 35.6 g/dL (32.0-36.0) 11/12/19 06:49 RDW 15.0 % (11.5-14.0) H 11/12/19 06:49 Plt Count 144 10^3/uL (150-450) L 11/12/19 06:49 Lymph % (Auto) 17.0 % (13-45) 11/11/19 18:41 [place] % (Auto) 5.8 % (3-13) 11/11/19 18:41 Eos % (Auto) 0.7 % (0-6) 11/11/19 18:41 Baso % (Auto) 0.9 % (0-2) 11/11/19 18:41 Absolute Neuts (auto) 6.0 10^3/uL (1.7-8.2) 11/11/19 18:41 Absolute Lymphs (auto) 1.3 10^3/uL (0.5-4.7) 11/11/19 18:41 Absolute Monos (auto) 0.5 10^3/uL (0.1-1.4) 11/11/19 18:41 Absolute Eos (auto) 0.1 10^3/uL (0.0-0.6) 11/11/19 18:41 Absolute Basos (auto) 0.1 10^3/uL (0.0-0.2) 11/11/19 18:41 Seg Neutrophils % 75.6 % (42-78) 11/11/19 18:41 Urine Color STRAW 11/11/19 18:18 Urine Appearance CLEAR 11/11/19 18:18 Urine pH 7.0 (5.0-9.0) 11/11/19 18:18 Ur Specific [place] 1.003 11/11/19 18:18 Urine Protein NEGATIVE mg/dL (NEGATIVE) 11/11/19 18:18 Urine Glucose (UA) NEGATIVE mg/dL (NEGATIVE) 11/11/19 18:18 Urine Ketones TRACE mg/dL (NEGATIVE) H 11/11/19 18:18 Urine Blood NEGATIVE (NEGATIVE) 11/11/19 18:18 Urine Nitrite NEGATIVE (NEGATIVE) 11/11/19 18:18 Urine Bilirubin NEGATIVE (NEGATIVE) 11/11/19 18:18 Urine Urobilinogen NEGATIVE mg/dL (<2.0) 11/11/19 18:18 Ur Leukocyte Esterase NEGATIVE (NEGATIVE) 11/11/19 18:18 Urine Ascorbic Acid NEGATIVE (NEGATIVE) 11/11/19 18:18 Urine Opiates Screen NEGATIVE 11/11/19 18:18 Urine Methadone Screen NEGATIVE 11/11/19 18:18 Ur Barbiturates Screen NEGATIVE 11/11/19 18:18 Ur Phencyclidine Scrn NEGATIVE 11/11/19 18:18 Ur Amphetamines Screen NEGATIVE 11/11/19 18:18 U Benzodiazepines Scrn NEGATIVE 11/11/19 18:18 Urine Cocaine Screen NEGATIVE 11/11/19 18:18 U Marijuana (THC) Screen NEGATIVE 11/11/19 18:18 RPR NONREACTIVE (NONREACTIVE) 11/11/19 18:41 Blood Type A POSITIVE 11/11/19 18:41 Antibody Screen NEGATIVE 11/11/19 18:41 Plan Plan of Treatment: d/c home, f/up with [facility] in 4 wks for PP check Time Spent: Less than 30 Minutes
== END 2019-11-13 14:16 | disposition home or self-care (01) | DRG 806 ==
LOC: LC 18:10 → LR 18:31 → 2S 11-12 00:25
PROVIDERS: ADMIT Student in an Organized Health Care Education/Training Program; ATTEND Student in an Organized Health Care Education/Training Program
PROC: 10E0XZZ Delivery of Products of Conception, External Approach (ICD-10-PCS; principal; 2019-11-11)
DX: O62.3 Precipitate labor (principal); O98.52 Other viral diseases complicating childbirth; Z37.0 Single live birth; B00.9 Herpesviral infection, unspecified; O77.0 Labor and delivery complicated by meconium in amniotic fluid; Z3A.39 39 weeks gestation of pregnancy; O99.284 Endocrine, nutritional and metabolic diseases complicating childbirth; E03.9 Hypothyroidism, unspecified; O99.52 Diseases of the respiratory system complicating childbirth; J45.909 Unspecified asthma, uncomplicated; O99.344 Other mental disorders complicating childbirth; F32.9 Major depressive disorder, single episode, unspecified; Z79.899 Other long term (current) drug therapy
CPT/HCPCS: 36415; 80307; 81005; 85025; 85027; 86592; 86850; 86900; 86901; J2590; J3490